=== PATIENT | male | born 1980 | race African-American/Black ===

== ENCOUNTER 2017-02-06 17:12 | Emergency (ER) | payer MEDICAID ==
[~2017-02-06] VITALS: Ht 167.6 cm; Wt 71.0 kg
[2017-02-06] MEDS ORDERED: HYDROCODONE/ACETAMINOPHEN 5/325MG TABLET PO ONE ×2 (17:30→20:00)
[2017-02-06 20:04] VITALS: BP 150/65
== END 2017-02-06 20:54 | disposition home or self-care (01) ==
LOC: ER 17:27
DX: M25.551 Pain in right hip (principal); G89.29 Other chronic pain; Q65.89 Other specified congenital deformities of hip; R03.0 Elevated blood-pressure reading, without diagnosis of hypertension; G40.909 Epilepsy, unspecified, not intractable, without status epilepticus; J45.909 Unspecified asthma, uncomplicated
CPT/HCPCS: 73502; 99284